=== PATIENT | female | born 1995 | race African-American/Black ===

== ENCOUNTER 2021-03-21 15:11 | Emergency (ER) | payer MEDICAID ==
[~2021-03-21] VITALS: Ht 165.1 cm; Wt 64.0 kg
[2021-03-21 18:15] VITALS: BP 125/84
== END 2021-03-21 18:15 | disposition home or self-care (01) ==
LOC: ER 15:15
DX: N93.9 Abnormal uterine and vaginal bleeding, unspecified (principal)
CPT/HCPCS: 81025; 99282